=== PATIENT | female | born 1960 | race Caucasian/White ===

== ENCOUNTER 2021-07-05 07:56 | Outpatient (CLI) | payer BC, SELFPAY | END 2021-07-05 07:57 | disposition home or self-care (01) | LOC: ANHAUDIO 08:00 | PROVIDERS: Visit Provider Otolaryngology | DX: H90.3 Sensorineural hearing loss, bilateral (principal) | CPT/HCPCS: 99199 ==

== ENCOUNTER 2021-07-22 10:30 | Outpatient (CLI) | payer BC, SELFPAY | END 2021-07-22 10:31 | disposition home or self-care (01) | LOC: ANHAUDIO 10:31 | PROVIDERS: Visit Provider Otolaryngology | DX: H90.3 Sensorineural hearing loss, bilateral (principal) | CPT/HCPCS: 92557; 92567 ==

== ENCOUNTER 2021-08-13 06:46 | Outpatient (CLI) | payer BC, SELFPAY ==
--- NOTE | 2021-08-13 | ECG_ITS ---
Measurements Intervals [place] Rate: 59 P: 78 TN: 159 QRS: 79 QRSD: 83 T: 78 QT: 382 QTc: 379 Interpretive Statements SINUS BRADYCARDIA POSSIBLE LEFT ATRIAL ENLARGEMENT BORDERLINE ECG Electronically Signed On 08-13-2021 8:44:[address] by Juan Miguel Velez D.O.
[2021-08-13 07:56] LABS: Anion Gap 10 mmol/L (8-16); Blood Urea Nitrogen 15 mg/dL (7-17); Calcium 9.6 mg/dL (8.4-10.2); Carbon Dioxide 24 mmol/L (22-30); Chloride 107 mmol/L (98-107); Estimated Glomerular Filt Rate > 60; Glucose 98 mg/dL (65-110); Potassium 4.2 mmol/L (3.4-5.0); Sodium 141 mmol/L (137-145)
== END 2021-08-13 06:47 | disposition home or self-care (01) ==
DX: Z01.818 Encounter for other preprocedural examination (principal); M21.612 Bunion of left foot; M21.611 Bunion of right foot; I10 Essential (primary) hypertension; R00.1 Bradycardia, unspecified
CPT/HCPCS: 36415; 80048; 93005

== ENCOUNTER 2023-12-15 08:38 | Outpatient (CLI) | payer BC, SELFPAY ==
--- NOTE | ~2023-12-15 | DEXA_ITS ---
Bone Density Report Name: SON DELACRUZ Age: 63 Sex: Female Ethnicity: White Date of : 1960 Indication: osteopenia; inflammatory bowel disease; history of glucocorticoids; prior fracture; Referring Provider: PING HATHAWAY Study: Bone densitometry was performed. Exam Date: December 15, 2023 Accession number: [id number] Bone Density: Region BMD T-score Z-score Classification AP Spine (L1-L4) 0.788 -2.4 -0.5 Osteopenia Femoral Neck (Left) 0.586 -2.4 -0.8 Osteopenia Total Hip (Left) 0.746 -1.6 -0.3 Osteopenia Femoral Neck (Right) 0.610 -2.2 -0.6 Osteopenia Total Hip (Right) 0.743 -1.6 -0.4 Osteopenia Total Hip Mean 0.745 -1.6 -0.4 Osteopenia World Health Organization criteria for BMD impression classify patients as: Normal (T-score at or above -1.0), Osteopenia (T-score between -1.0 and -2.5), or Osteoporosis (T-score at or below -2.5). 10-year Fracture Risk: FRAX not reported because: Prior hip or vertebral fracture Previous Exams: Region Exam Age BMD T-score BMD Change BMD Change Date g/cm2 vs Baseline vs Previous AP Spine(L1-L4) 12/15/2023 63 0.788 -2.4 -0.050* -0.050* 08/19/2019 59 0.838 -1.9 Total Hip(Left) 12/15/2023 63 0.746 -1.6 -0.073* -0.073* 08/19/2019 59 0.819 -1.0 Total Hip(Right) 12/15/2023 63 0.743 -1.6 -0.068* -0.068* 08/19/2019 59 0.812 -1.1 *Denotes significance at 95% confidence level, LSC for AP Spine = 0.022 g/cm2, LSC for Total Hip = 0.027 g/cm2 Clinical Information Provided by Patient: Have had a previous hip or vertebral fracture Has had a low trauma fracture Has taken Glucocorticoids Has used the following medications: Vitamin D Has the following medical conditions: Inflammatory bowel diseases, HX OF LIVER CA 2005 AND BILATERAL BREAST CA MASTECTOMY 2017 Patient maximum height was 63.0 Menopause Age: 45 No regular weight bearing exercise Onset of menses at age 15 Number of children 0 Impression: The patient has low bone mass, based on the Total Spine T-score. The patient has risk factors, including: previous fracture, history of glucocorticoid therapy. The BMD for the AP Spine(L1-L4) decreased, changing by -0.050 since the last DXA exam. The BMD for the Total Hip(Left) decreased, changing by -0.073 since the last DXA exam. The BMD for the Total Hip(Right) decreased, changing by -0.068 since the last DXA exam. Discussion: INCREASED RISK OF FRACTURE D
== END 2023-12-15 08:39 ==
DX: Z78.0 Asymptomatic menopausal state (principal); M85.88 Other specified disorders of bone density and structure, other site; M85.852 Other specified disorders of bone density and structure, left thigh; M85.851 Other specified disorders of bone density and structure, right thigh
CPT/HCPCS: 77080